=== PATIENT | female | born 1990 | race Hispanic/Latino ===

== ENCOUNTER 2016-06-12 15:22 | Outpatient (CLI) | payer MEDICAID ==
[2016-06-12] MEDS ORDERED: LACTATED RINGERS 500 ML IV ONE (15:23)
[2016-06-12 15:56] VITALS: BP 125/69
== END 2016-06-12 16:45 | disposition home or self-care (01) ==
LOC: TRG 15:22
PROVIDERS: ATTEND Obstetrics & Gynecology
DX: O47.03 False labor before 37 completed weeks of gestation, third trimester (principal); Z3A.33 33 weeks gestation of pregnancy

== ENCOUNTER 2016-07-19 11:53 | Outpatient (CLI) | payer MEDICAID ==
[2016-07-19 12:46] LABS: Hematocrit 35.5 % (30.3-42.9); Hemoglobin 11.5 gm/dl (10.1-14.3); Mean Corpuscular HGB Conc 32 % (30-34); Mean Corpuscular Hemoglobin 26 pg (28-32); Mean Corpuscular Volume 81 fl (79-97); Platelet Count 272 K/mm3 (140-440); Red Blood Count 4.37 M/mm3 (3.65-5.03); Red Cell Distribution Width 14.1 % (13.2-15.2); White Blood Count 11.6 K/mm3 (4.5-11.0)
[2016-07-19 13:16] LABS: Alanine Aminotransferase 6 units/L (7-56); Lactate Dehydrogenase 118 units/L (91-180); Uric Acid 5.3 mg/dL (3.5-7.6)
[2016-07-19 13:30] LABS: Bilirubin,Urine NEG (Negative); Blood,Urine MOD (Negative); Ketones,Urine NEG (Negative); Leukocyte Esterase,Urine LG (Negative); Mucus,Urine FEW /HPF; Nitrite,Urine NEG (Negative); Protein,Urine <15 mg/dL mg/dL (Negative); Urobilinogen,Urine < 2.0 mg/dL (<2.0)
[2016-07-19 13:41] VITALS: BP 116/59
== END 2016-07-19 13:48 | disposition home or self-care (01) ==
LOC: TRG 11:53
PROVIDERS: ATTEND Obstetrics & Gynecology
DX: Z34.93 Encounter for supervision of normal pregnancy, unspecified, third trimester (principal); Z3A.38 38 weeks gestation of pregnancy
CPT/HCPCS: 36415; 59025; 81001; 82565; 83615; 84450; 84460; 84550; 85027

== ENCOUNTER 2016-07-20 05:21 | Inpatient (IN) | payer MEDICAID ==
[2016-07-20] MEDS ORDERED: ePHEDrine SULFATE IV PRN ×2 (05:28→08:08)
[2016-07-20] MEDS ORDERED: SUBLIMAZE IV PRN (05:28)
[2016-07-20] MEDS ORDERED: ZOFRAN IV PRN (05:28)
[2016-07-20] MEDS ORDERED: BRETHINE SUB-Q PRN (05:28)
[2016-07-20] MEDS ORDERED: MINERAL OIL PO PRN (05:28)
[2016-07-20] MEDS ORDERED: BRETHINE IVP PRN (05:28)
[2016-07-20] MEDS ORDERED: XYLOCAINE 2% INFILTRATI ONE (05:28)
[2016-07-20] MEDS ORDERED: PITOCin/NS 30 UNIT/500ML 30 UNITS/500 ML BAG IV SCH (06:00)
[2016-07-20] MEDS ORDERED: LACTATED RINGERS 1,000 ML IV SCH (06:00)
[2016-07-20] MEDS ORDERED: PITOCin/NS 20 UNIT/1000ML DRIP 20 UNITS/1,000 ML BAG IV SCH (06:00)
--- NOTE | 2016-07-20 06:14 | History and Physical Report ---
History of Present Illness Date of examination: 07/20/16 (pt presents with SROM clear fluid) Date of admission: 07/20/16 05:49 Chief complaint: "water is broken" History of present illness: Past History : 2 Term Births: 1 Living Children: 1 Para: 1 Aborta: 0 # 1 Delivery date: 05/23/2012 Weeks Gestation: 39 Delivery type: Vaginal Anesthesia type: epidural Delivery location: [facility] Infant Sex: male Comments: none Past Medical History: Reviewed history from 09/25/2013 and no changes required: PCOS endometriosis Past Surgical History: Reviewed history from 09/25/2013 and no changes required: exp lap 2009 Past Medical History Abnormal PAP: negative STEFANIA Exposure: negative Infertility: negative Uterine Anomaly: negative Uterine Surgery (not C/S): negative Other Gynecologic Problems: negative Social Hx: Patient is single no etoh, no illicit drug use, no tobacco use Smoking History: Patient has never smoked. Patient has been counseled to quit. Infection History Hx of STD: none Hepatitis B Risk Eval: low risk Personal hx. of genital herpes: no Partner hx. of genital herpes: no Rash, Viral, or Febrile illness since last LMP? no Varicella/Chicken Pox Status: Previous Disease Genetic History Congenital Heart Defect: Mom: no Dad: no Shaila Disease: Mom: no Dad: no Thalassemia Mom: no Dad: no Neural Tube Defect Mom: no Dad: no Down's Syndrome Mom: no Dad: no Papa-Sachs Mom: no Dad: no Sickle Cell Disease/Trait Mom: no Dad: no Hemophilia Mom: no Dad: no Muscular Dystrophy Mom: no Dad: no Cystic Fibrosis Mom: no Dad: no [place] Chorea Mom: no Dad: no Mental Retardation Mom: no Dad: no Fragile X Mom: no Dad: no Other Genetic/Chromosomal Disorder Mom: no Dad: no Child w/other defect Mom: no Dad: no Enviromental Exposures Xray Exposure: no Medication, drug, or alcohol use since LMP: no Chemical/Other Exposure: no Exposure to Cat Liter: no Hx of Parvovirus (Fifth Disease): no Occupational Exposure to Children: none Active Medications (reviewed today): SPRINTEC 28 0.25-35 MG-MCG TABS (NORGESTIMATE-ETH ESTRADIOL) 1 po qd ANAPROX DS 550 MG TABS (NAPROXEN SODIUM) one po q 12prn pain ANAPROX DS 550 MG TABS (NAPROXEN SODIUM) one po q 12 prn pain SPRINTEC 28 0.25-35 MG-MCG TABS (NORGESTIMATE-ETH ESTRADIOL) 1 po qd Current Allergies (reviewed today): * TYLENOL #3 (Critical) Laboratory Results Routine Urinalysis Leukocytes: 1+ Nitrite: negative Urobilinogen: negative Protein: negative Blood: negative Ketone: negative Bilirubin: negative Glucose: negative Urine HCG: positive Review of Systems General Denies fever, chills, sweats, anorexia, fatigue, weakness, malaise, weight loss and sleep disorder. Complains of nausea. Denies vomiting, headache, swelling of legs, abdominal pain, vaginal discharge, vaginal bleeding and contractions. Denies vaginal discharge, incontinence, dysuria, hematuria, urinary frequency, amenorrhea, menorrhagia, abnormal vaginal bleeding, pelvic pain, genital sores, decreased libido, painful periods, painful sex, urinary urgency, hot flashes, vaginal dryness, vaginal itching and vaginal odor. CV Denies chest pains, palpitations, syncope, dyspnea on exertion, orthopnea, PND and peripheral edema. Resp Denies cough, dyspnea at rest, excessive sputum, hemoptysis, wheezing and pleurisy. GI Denies nausea, vomiting, diarrhea, constipation, change in bowel habits, abdominal pain, melena, hematochezia, jaundice, gas/bloating, indigestion/ heartburn, dysphagia and odynophagia. Endo Denies cold intolerance, heat intolerance, polydipsia, polyphagia, polyuria and unusual weight change. Breast Denies left breast lump, right breast lump, nipple discharge, bloody discharge from nipple, breast pain, abnormal mammogram and breast enlargement. MS Denies back pain, joint pain, joint swelling, muscle cramps, muscle weakness, stiffness, arthritis, sciatica, restless legs, leg pain at night and leg pain with exertion. Derm Denies rash, itching, dryness and suspicious lesions. Neuro Denies paralysis, paresthesias, headache, seizures, tremors, vertigo, transient blindness, frequent falls, frequent headaches and difficulty walking. Psych Denies depression, anxiety, irritability and mood swings. Eyes Denies blurring, diplopia, irritation, discharge, vision loss, eye pain and photophobia. ENT Denies earache, ear discharge, tinnitus, decreased hearing, nasal congestion, nosebleeds, sore throat and hoarseness. Allergy Denies urticaria, allergic rash, hay fever and recurrent infections. Heme Denies abnormal bruising, bleeding and enlarged lymph nodes. 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 Vulva/Vagina: No lesions, normal BUS, normal rugae Cervix: No lesions; no cervical motion tenderness Uterus: normal size and position, midline, mobile Adnexae: no masses or tenderness Rectovaginal: no masses or tenderness Past History - Obstetrical History Expected Date of Delivery: 07/20/16 Actual Gestation: 40 Week(s) 0 Day(s) : 2 Para: 1 Number of Living Children: 1 Medications and Allergies Allergies Allergy/AdvReac Type Severity Reaction Status Date / Time No Known Allergies Allergy Unverified 06/12/16 15:23 Active Meds: Active Medications Fentanyl (Sublimaze) 100 mcg IV Q2H PRN PRN Reason: Labor Pain Lactated Ringer's (Lactated Ringers) 1,000 mls @ 125 mls/hr IV DIRECT CHUCKY Oxytocin/Sodium Chloride (Pitocin/Ns 20 Unit/1000ml Drip) 20 units in 1,000 mls @ 125 mls/hr IV DIRECT CHUCKY Oxytocin/Sodium Chloride (Pitocin/Ns 30 Unit/500ml) 30 units in 500 mls @ 4 mls /hr IV Q30MIN CHUCKY PRN Reason: Protocol Mineral Oil (Mineral Oil) 30 ml PO QHS PRN PRN Reason: Constipation Ondansetron HCl (Zofran) 4 mg IV Q8H PRN PRN Reason: Nausea And Vomiting - Vital Signs Vital signs: Vital Signs Pulse BP Pulse Ox 98 H 123/90 97 07/20/16 05:37 07/20/16 05:37 07/20/16 05:37 Temp Pulse Resp BP Pulse Ox 97.7 F 96 H 18 123/90 97 07/20/16 05:45 07/20/16 05:47 07/20/16 05:45 07/20/16 05:45 07/20/16 05:47 - Physical Exam Breasts: Positive: deferred Cardiovascular: Regular rate, Normal S1, Normal S2 Lungs: Positive: Normal air movement Abdomen: Positive: normal appearance, soft, normal bowel sounds. Negative: distention, tenderness Genitourinary (Female): Positive: normal external genitalia Vulva: both: normal Vagina: Positive: normal moisture. Negative: discharge Cervix: Negative: lesion, discharge Uterus: Positive: normal size, normal contour Adnexa: both: normal Anus/Rectum: Positive: normal perianal skin, heme negative. Negative: rectal mass, hemorrhoids Extremities: Positive: edema Deep Tendon Reflex Grade: Normal +2 - Obstetrical FHR: category 1 Uterine Contraction Monitor Mode: External Cervical Dilatation: 3.5 (SROM clear) Cervical Effacement Percentage: 70 station: -2 Uterine Contraction Pattern: Regular Uterine Contraction Intensity: Moderate Results All other labs normal. Laboratory Data-Patient Name: RACHELL KELLEY Test Date Result Blood Type 12/23/2015 O Rh 12/23/2015 Negative Antibody Screen negative Rubella 12/23/2015 nonimmune Serology (RPR) 06/29/2016 NR HBsAg 12/23/2015 Negative Hemoglobin 04/13/2016 11.3 Hematocrit 04/13/2016 34.6 Platelets 12/23/2015 275 [id number] Chlamydia DNA 06/29/2016 Negative GC DNA/Culture 06/29/2016 Urine Culture 04/13/2016 Final report Group B Strep cult negative PAP 03/08/2015 Normal, Satisfactory HIV 06/29/2016 negative AFP/Quad Screen 02/17/2016 Glucola Test 02/19/2012 84 3hr GTT (Fasting) 1 hr 2 hr 3 hr [facility]-Patient Name:RACHELL KELLEY Test Date Result Varicella Ab 12/23/2015 nonimmune Sickle Cell 12/23/2015 Negative PPD Fibronectin Cystic Fibrosis Parvovirus TSH Free T4 Hepatitis C ALT AST Uric Acid Creatinine 24 hr Urine Protein [place] Assessment and Plan 25yo @ 38 weeks with SROM early labor GBS negative Orders in EMR Will offer pt MMR and Varicella vaccine PP She is nonimmune.
[2016-07-20 06:32] LABS: Hematocrit 33.9 % (30.3-42.9); Hemoglobin 11.2 gm/dl (10.1-14.3); Mean Corpuscular HGB Conc 33 % (30-34); Mean Corpuscular Hemoglobin 27 pg (28-32); Mean Corpuscular Volume 81 fl (79-97); Platelet Count 273 K/mm3 (140-440); Red Blood Count 4.19 M/mm3 (3.65-5.03); Red Cell Distribution Width 14.2 % (13.2-15.2); White Blood Count 12.9 K/mm3 (4.5-11.0)
[2016-07-20] MEDS ORDERED: ePHEDrine SULFATE ONE (07:31)
[2016-07-20] MEDS ORDERED: NARCAN 2 MG/2 ML IV PRN (08:08)
--- NOTE | 2016-07-20 08:08 | Anesthesia Consultation ---
Anesthesia Consult and Med Hx Date of service: 07/20/16 - Airway Anesthetic Teeth Evaluation: Good ROM Head & Neck: Adequate Mental/Hyoid Distance: Adequate Mallampati Class: Class II Intubation Access Assessment: Probably Good - Pre-Operative Health Status ASA Pre-Surgery Classification: ASA2 Proposed Anesthetic Plan: Epidural, Spinal - Pulmonary Hx Asthma: No COPD: No Hx Pneumonia: No - Cardiovascular System Hx Hypertension: No - Central Nervous System Hx Seizures: No Hx Psychiatric Problems: No - Endocrine Hx Renal Disease: No Hx End Stage Renal Disease: No Hx Hypothyroidism: No Hx Hyperthyroidism: No - Hematic Hx Anemia: No Hx Sickle Cell Disease: No - Other Systems Hx Alcohol Use: Yes Hx Obesity: Yes (BMI 39.7)
--- NOTE | 2016-07-20 08:19 | Progress Note ---
Assessment and Plan Pt comfortable with epidural SVE 5,70,0 Internal monitors placed. Pit @ 4mu will increase per protocol. R-eval as needed Subjective - Subjective Date of service: 07/20/16 (s/p epidural) Interval history: Past History : 2 Term Births: 1 Living Children: 1 Para: 1 Aborta: 0 # 1 Delivery date: 05/23/2012 Weeks Gestation: 39 Delivery type: Vaginal Anesthesia type: epidural Delivery location: [facility] Sex: male Comments: none Past Medical History: Reviewed history from 09/25/2013 and no changes required: PCOS endometriosis Past Surgical History: Reviewed history from 09/25/2013 and no changes required: exp lap 2009 Past Medical History Abnormal PAP: negative STEFANIA Exposure: negative Infertility: negative Uterine Anomaly: negative Uterine Surgery (not C/S): negative Other Gynecologic Problems: negative Social Hx: Patient is single no etoh, no illicit drug use, no tobacco use Smoking History: Patient has never smoked. Patient has been counseled to quit. Infection History Hx of STD: none Hepatitis B Risk Eval: low risk Personal hx. of genital herpes: no Partner hx. of genital herpes: no Rash, Viral, or Febrile illness since last LMP? no Varicella/Chicken Pox Status: Previous Disease Genetic History Congenital Heart Defect: Mom: no Dad: no Shaila Disease: Mom: no Dad: no Thalassemia Mom: no Dad: no Neural Tube Defect Mom: no Dad: no Down's Syndrome Mom: no Dad: no Papa-Sachs Mom: no Dad: no Sickle Cell Disease/Trait Mom: no Dad: no Hemophilia Mom: no Dad: no Muscular Dystrophy Mom: no Dad: no Cystic Fibrosis Mom: no Dad: no [place] Chorea Mom: no Dad: no Mental Retardation Mom: no Dad: no Fragile X Mom: no Dad: no Other Genetic/Chromosomal Disorder Mom: no Dad: no Child w/other defect Mom: no Dad: no Enviromental Exposures Xray Exposure: no Medication, drug, or alcohol use since LMP: no Chemical/Other Exposure: no Exposure to Cat Liter: no Hx of Parvovirus (Fifth Disease): no Occupational Exposure to Children: none Active Medications (reviewed today): SPRINTEC 28 0.25-35 MG-MCG TABS (NORGESTIMATE-ETH ESTRADIOL) 1 po qd ANAPROX DS 550 MG TABS (NAPROXEN SODIUM) one po q 12prn pain ANAPROX DS 550 MG TABS (NAPROXEN SODIUM) one po q 12 prn pain SPRINTEC 28 0.25-35 MG-MCG TABS (NORGESTIMATE-ETH ESTRADIOL) 1 po qd Current Allergies (reviewed today): * TYLENOL #3 (Critical) Laboratory Results Routine Urinalysis Leukocytes: 1+ Nitrite: negative Urobilinogen: negative Protein: negative Blood: negative Ketone: negative Bilirubin: negative Glucose: negative Urine HCG: positive Review of Systems General Denies fever, chills, sweats, anorexia, fatigue, weakness, malaise, weight loss and sleep disorder. Complains of nausea. Denies vomiting, headache, swelling of legs, abdominal pain, vaginal discharge, vaginal bleeding and contractions. Denies vaginal discharge, incontinence, dysuria, hematuria, urinary frequency, amenorrhea, menorrhagia, abnormal vaginal bleeding, pelvic pain, genital sores, decreased libido, painful periods, painful sex, urinary urgency, hot flashes, vaginal dryness, vaginal itching and vaginal odor. CV Denies chest pains, palpitations, syncope, dyspnea on exertion, orthopnea, PND and peripheral edema. Resp Denies cough, dyspnea at rest, excessive sputum, hemoptysis, wheezing and pleurisy. GI Denies nausea, vomiting, diarrhea, constipation, change in bowel habits, abdominal pain, melena, hematochezia, jaundice, gas/bloating, indigestion/ heartburn, dysphagia and odynophagia. Endo Denies cold intolerance, heat intolerance, polydipsia, polyphagia, polyuria and unusual weight change. Breast Denies left breast lump, right breast lump, nipple discharge, bloody discharge from nipple, breast pain, abnormal mammogram and breast enlargement. MS Denies back pain, joint pain, joint swelling, muscle cramps, muscle weakness, stiffness, arthritis, sciatica, restless legs, leg pain at night and leg pain with exertion. Derm Denies rash, itching, dryness and suspicious lesions. Neuro Denies paralysis, paresthesias, headache, seizures, tremors, vertigo, transient blindness, frequent falls, frequent headaches and difficulty walking. Psych Denies depression, anxiety, irritability and mood swings. Eyes Denies blurring, diplopia, irritation, discharge, vision loss, eye pain and photophobia. ENT Denies earache, ear discharge, tinnitus, decreased hearing, nasal congestion, nosebleeds, sore throat and hoarseness. Allergy Denies urticaria, allergic rash, hay fever and recurrent infections. Heme Denies abnormal bruising, bleeding and enlarged lymph nodes. 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 Vulva/Vagina: No lesions, normal BUS, normal rugae Cervix: No lesions; no cervical motion tenderness Uterus: normal size and position, midline, mobile Adnexae: no masses or tenderness Rectovaginal: no masses or tenderness Patient reports: movement normal Objective - Vital Signs Vital Signs: Vital Signs - 12hr 07/20/16 07/20/16 07/20/16 05:37 05:42 05:45 Temperature 97.7 F Pulse Rate 98 H 96 H Respiratory 18 Rate Blood Pressure 123/90 Blood Pressure 123/90 [Left Arm] O2 Sat by Pulse 97 98 Oximetry 07/20/16 07/20/16 07/20/16 05:47 06:14 06:19 Temperature Pulse Rate 96 H 94 H 92 H Respiratory Rate Blood Pressure Blood Pressure [Left Arm] O2 Sat by Pulse 97 98 97 Oximetry 07/20/16 07/20/16 07/20/16 06:24 06:29 06:34 Temperature Pulse Rate 80 84 79 Respiratory Rate Blood Pressure Blood Pressure [Left Arm] O2 Sat by Pulse 98 97 98 Oximetry 07/20/16 07/20/16 07/20/16 06:39 06:44 06:49 Temperature Pulse Rate 92 H 87 82 Respiratory Rate Blood Pressure 128/84 Blood Pressure [Left Arm] O2 Sat by Pulse 97 98 98 Oximetry 07/20/16 07/20/16 07/20/16 06:50 06:51 06:54 Temperature Pulse Rate 87 77 Respiratory 20 Rate Blood Pressure Blood Pressure [Left Arm] O2 Sat by Pulse 94 98 Oximetry 07/20/16 07/20/16 07/20/16 06:59 07:04 07:09 Temperature Pulse Rate 77 80 80 Respiratory Rate Blood Pressure Blood Pressure [Left Arm] O2 Sat by Pulse 97 98 96 Oximetry 07/20/16 07/20/16 07/20/16 07:10 07:14 07:19 Temperature 97.8 F Pulse Rate 81 72 Respiratory 20 Rate Blood Pressure Blood Pressure [Left Arm] O2 Sat by Pulse 96 97 Oximetry 07/20/16 07/20/16 07/20/16 07:24 07:29 07:34 Temperature Pulse Rate 73 81 81 Respiratory Rate Blood Pressure Blood Pressure [Left Arm] O2 Sat by Pulse 98 97 97 Oximetry 07/20/16 07/20/16 07/20/16 07:39 07:44 07:49 Temperature Pulse Rate 81 74 83 Respiratory Rate Blood Pressure Blood Pressure [Left Arm] O2 Sat by Pulse 97 98 98 Oximetry 07/20/16 07/20/16 07/20/16 07:53 07:54 07:56 Temperature Pulse Rate 81 78 71 Respiratory Rate Blood Pressure 117/81 127/71 Blood Pressure [Left Arm] O2 Sat by Pulse 98 Oximetry 07/20/16 07/20/16 07/20/16 07:59 08:01 08:03 Temperature Pulse Rate 74 82 68 Respiratory Rate Blood Pressure 136/87 134/82 131/81 Blood Pressure [Left Arm] O2 Sat by Pulse 99 Oximetry 07/20/16 07/20/16 07/20/16 08:04 08:05 08:07 Temperature Pulse Rate 78 73 74 Respiratory Rate Blood Pressure 131/83 118/66 Blood Pressure [Left Arm] O2 Sat by Pulse 97 Oximetry 07/20/16 07/20/16 07/20/16 08:09 08:11 08:13 Temperature Pulse Rate 77 80 77 Respiratory Rate Blood Pressure 126/77 128/78 130/77 Blood Pressure [Left Arm] O2 Sat by Pulse 97 Oximetry - Exam Breasts: deferred Cardiovascular: Regular rate Lungs: Normal air movement Abdomen: Present: normal appearance, soft. Absent: distention, tenderness Uterus: Present: normal FHR: auscultation normal, category 1 Uterine Contraction Monitor Mode: Internal Cervical Dilatation: 5 (ISE/IUPC placed) Cervical Effacement Percentage: 70 station: 0 Uterine Contraction Pattern: Regular Uterine Contraction Intensity: Moderate Extremities: normal Deep Tendon Reflex Grade: Normal +2 - Labs Labs: Abnormal Labs 07/20/16 06:00 WBC 12.9 H MCH 27 L Laboratory Results - last 24 hr 07/20/16 07/20/16 06:00 06:00 WBC 12.9 H RBC 4.19 Hgb 11.2 Hct 33.9 MCV 81 MCH 27 L MCHC 33 RDW 14.2 Plt Count 273 Blood Type O NEGATIVE Antibody Screen Negative
[2016-07-20] MEDS ORDERED: fentaNYL-BUPIV 2 MCG/ML-0.125% 200 MCG/100 ML BAG EPIDURAL SCH (09:00)
--- NOTE | 2016-07-20 09:29 | Procedure Note ---
OB Delivery Note - Delivery Date of Delivery: 07/20/16 Nuclear Unit Operator: FRANCINE KUMAR Estimated blood loss: other (400cc) - Vaginal Delivery presentation: vertex Delivery position: OA Intrapartum events: none Delivery induction: none Delivery augmentation: pitocin Delivery monitor: internal FHT, internal uterine Route of delivery: Delivery placenta: spontaneous Delivery cord: 3 umbilical vessels, other (occult cord next to baby's face) Delivery laceration: none Anesthesia: epidural Delivery comments: live born female over intact perineum Occult cord next to baby's face Baby floppy Responded well to stim. 7/9. Cord blood obt Placenta and membrane del complete and intact, 3 vessel cord. Pit IVFs. EBL 400cc, Wgt 6-13. Mom and baby remain LDR stable. - Infant A at 1 minute: 7 at 5 minutes: 9 Infant Gender: Female (wgt 6-13)
[2016-07-20] MEDS ORDERED: PHENERGAN PR PRN (09:30)
[2016-07-20] MEDS ORDERED: BENADRYL PO PRN (09:30)
[2016-07-20] MEDS ORDERED: LANSINOH TP PRN (09:30)
[2016-07-20] MEDS ORDERED: TYLENOL PO PRN ×2 (09:30→10:00)
[2016-07-20] MEDS ORDERED: PHENERGAN PO PRN (09:30)
[2016-07-20] MEDS ORDERED: TUCKS PAD TP PRN (09:30)
[2016-07-20] MEDS ORDERED: DERMOPLAST TP PRN (09:30)
[2016-07-20] MEDS ORDERED: COLACE PO SCH (10:00)
[2016-07-20] MEDS ORDERED: DULCOLAX PR PRN (10:00)
[2016-07-20] MEDS ORDERED: SODIUM CHLORIDE FLUSH SYRINGE 10 ML IV PRN (10:00)
[2016-07-20] MEDS ORDERED: PRENATAL VITAMIN PO SCH (10:00)
[2016-07-20] MEDS: MOTRIN PO SCH ×3 (12:05→23:54)
[2016-07-20] MEDS ORDERED: NORCO 5/325 PO PRN (12:49)
[2016-07-20 21:55] LABS: Hemoglobin 10.1 gm/dl (10.1-14.3)
[2016-07-20] MEDS ORDERED: MILK OF MAGNESIA PO PRN (22:00)
[2016-07-21] MEDS: MOTRIN PO SCH ×2 (05:44→12:26)
[2016-07-21] MEDS ORDERED: BOOSTRIX IM ONE (06:00)
--- NOTE | 2016-07-21 07:47 | Progress Note ---
Assessment and Plan Patient doing well, no complaints. Patient requesting d/c home today. TONY Pool, H&H stable 10.1/31.0. Plan for d/c home with routine f/u in 4 weeks. - Patient Problems (1) (normal spontaneous vaginal delivery) Current Visit: Yes Status: Acute Subjective - Subjective Date of service: 07/21/16 Principal diagnosis: day #1 s/p Patient reports: appetite normal, voiding normally, pain well controlled, ambulating normally, no dizzy ambulation, no nauseated : doing well, bottle feeding Objective - Vital Signs Latest vital signs: Vital Signs Temp Pulse Pulse Resp BP BP Pulse Ox 07/21/16 00:05 98.0 F 99 H 20 120/60 07/20/16 16:30 97.9 F 83 20 125/68 07/20/16 12:55 20 07/20/16 12:05 20 07/20/16 11:45 98.2 F 84 20 118/68 07/20/16 10:59 98 F 18 07/20/16 10:56 78 126/69 07/20/16 10:15 74 120/73 07/20/16 10:14 77 97 07/20/16 10:09 97 H 99 07/20/16 10:04 77 98 07/20/16 10:00 78 126/78 07/20/16 09:59 82 98 07/20/16 09:54 79 98 07/20/16 09:50 98 F 18 07/20/16 09:49 90 98 07/20/16 09:45 82 126/74 07/20/16 09:44 81 98 07/20/16 09:39 75 97 07/20/16 09:34 84 98 07/20/16 09:30 78 130/75 07/20/16 09:29 81 98 07/20/16 09:24 92 H 99 07/20/16 09:19 85 99 07/20/16 09:15 75 129/70 07/20/16 09:14 74 98 07/20/16 09:09 79 98 07/20/16 09:04 77 99 07/20/16 09:00 93 H 151/90 07/20/16 08:59 80 100 07/20/16 08:54 97 H 99 07/20/16 08:49 69 99 07/20/16 08:44 79 97 07/20/16 08:43 72 133/79 07/20/16 08:41 80 128/75 07/20/16 08:39 77 132/74 99 07/20/16 08:37 70 134/79 07/20/16 08:35 66 132/81 07/20/16 08:34 72 98 07/20/16 08:33 74 128/76 07/20/16 08:31 66 130/78 07/20/16 08:29 74 130/80 98 07/20/16 08:27 74 129/76 07/20/16 08:25 68 129/77 07/20/16 08:24 73 98 07/20/16 08:23 68 125/78 07/20/16 08:21 67 132/78 07/20/16 08:19 67 130/74 98 07/20/16 08:17 71 129/76 07/20/16 08:15 70 126/76 07/20/16 08:14 82 97 07/20/16 08:13 77 130/77 07/20/16 08:11 80 128/78 07/20/16 08:09 77 126/77 97 07/20/16 08:07 74 118/66 07/20/16 08:05 73 131/83 07/20/16 08:04 78 97 07/20/16 08:03 68 131/81 07/20/16 08:01 82 134/82 07/20/16 07:59 74 136/87 99 07/20/16 07:56 71 127/71 07/20/16 07:54 78 98 07/20/16 07:53 81 117/81 07/20/16 07:49 83 98 Intake and Output 07/20/16 07/21/16 07/21/16 22:59 06:59 14:59 Intake Total 600 120 Output Total 1000 Balance -400 120 Intake: Oral 600 120 Output: Urine 1000 Void 1000 Other: Total, Intake Amount 240 120 Total, Output Amount 600 # Voids Void 1 - Exam Breasts: Present: normal Cardiovascular: Present: Regular rate Lungs: Present: Clear to auscultation, Normal air movement Abdomen: Present: normal appearance, soft Vulva: both: normal Uterus: Present: normal, firm, fundal height at umbilicus Extremities: Present: normal
--- NOTE | 2016-07-21 07:48 | Discharge Summary ---
Providers - Providers Date of Admission: 07/20/16 05:49 Date of discharge: 07/21/16 (desires d/c home) Attending physician: AMANDA DIXON Primary care physician: AMANDA DIXON Hospitalization Reason for admission: active labor Delivery: Episiotomy: none Laceration: none Other procedures: none complications: none Discharge diagnosis: IUP at term delivered [place] baby: female Hospital course: uncomplicated vaginal Condition at discharge: Good Disposition: DISCHARGED TO HOME OR SELFCARE - Discharge Diagnoses (1) (normal spontaneous vaginal delivery) Status: Acute Plan - Provider Discharge Summary Activity: routine, no sex for 6 weeks, no heavy lifting 4 weeks, no strenuous exercise Diet: routine Instructions: routine Additional instructions: [] Smoking cessation referral if applicable(refer to patient education folder for contact #) [] Refer to [facility]'s [facility] Booklet Call your doctor immediately for: * Fever > 100.5 * Heavy vaginal bleeding ( >1 pad per hour) * Severe persistent headache * Shortness of breath * Reddened, hot, painful area to leg or breast * Drainage or odor from incision. * Keep incision clean and dry at all times and follow doctor's instructions regarding bathing/showering - Follow up plan Follow up: AMANDA DIXON MD [Primary Care Provider] - 08/18/16 (Congratulations! Please call [phone] to schedule your visit in 4 weeks. Call for any questions or concerns. )
[2016-07-21] MEDS ORDERED: M-M-R II VACCINE SUB-Q ONE (11:00)
--- NOTE | 2016-07-21 13:03 | Progress Note ---
Subjective Date of service: 07/21/16 Principal diagnosis: day #1 s/p Interval history: 1st day after normal vaginal delivery Patient is in the bed, comfortable. Pain is well controlled with pain meds. Ambulated well. No residual neurological deficit. No anesthesia complications Objective - Constitutional Vitals: Vital Signs - 12hr 07/21/16 08:18 Temperature 98.4 F Pulse Rate [ 83 Right Radial] Respiratory 20 Rate Blood Pressure 132/68 [Right Arm] - Labs CBC & Chem 7: 07/20/16 21:17
[2016-07-21 17:42] VITALS: BP 136/69
== END 2016-07-21 13:30 | disposition home or self-care (01) | DRG 775 ==
LOC: TRG 05:21 → LD 05:49 → OB 11:44
PROVIDERS: ADMIT Obstetrics & Gynecology; ATTEND Obstetrics & Gynecology
PROC: 10E0XZZ Delivery of Products of Conception, External Approach (ICD-10-PCS; principal; 2016-07-20)
PROC: 3E0S3CZ (ICD-10-PCS; 2016-07-20)
PROC: 00HU33Z Insertion of Infusion Device into Spinal Canal, Percutaneous Approach (ICD-10-PCS; 2016-07-20)
PROC: 3E0334Z Introduction of Serum, Toxoid and Vaccine into Peripheral Vein, Percutaneous Approach (ICD-10-PCS; 2016-07-20)
DX: O42.02 Full-term premature rupture of membranes, onset of labor within 24 hours of rupture (principal); O99.214 Obesity complicating childbirth; Z37.0 Single live birth; Z3A.38 38 weeks gestation of pregnancy; E66.9 Obesity, unspecified; Z68.39 Body mass index [BMI] 39.0-39.9, adult
CPT/HCPCS: 36415; 85014; 85018; 85027; 85460; 86592; 86850; 86900; 86901; 90471; 90707; 99211; G0463; J2590; J3010; J7120